=== PATIENT | male | born 1960 | race Caucasian/White ===

== ENCOUNTER 2017-02-01 20:04 | Emergency (ER) | payer MEDICARE, MEDICAID ==
[~2017-02-01] VITALS: Ht 165.1 cm; Wt 59.0 kg
[~2017-02-01 20:04] MED LIST: CALC-751 PO; CLON0.1T PO; DOXA4TAB3 PO; HYDR-3735 PO; LEVO500T15 PO; LISI-604 PO; METR250T PO; NIFE90TA2 PO; OMEP20CA10 PO; PRED5TAB48 PO; SEVE800T8 PO
[2017-02-01 22:03] LABS: HEMATOCRIT. 31.5 % (42.0-52.0); HEMOGLOBIN. 10.5 g/dL (14.0-18.0); MEAN CORPUSCULAR HEMOGLOBIN 30.2 pg (28.0-32.0); MEAN CORPUSCULAR VOLUME 90.4 fL (80.0-94.0); PLATELET 116 x1000/uL (130-400); RED BLOOD CELL COUNT 3.49 mill/uL (4.7-6.1); RED CELL DISTRIBUTION WIDTH 15.7 % (11.6-14.6)
[2017-02-01] MEDS ORDERED: HYDROCODONE/ACETAMINOPHEN 5/325MG TABLET PO ONE (22:30)
[2017-02-01 23:00] LABS: PLATELET ESTIMATE DECREASED
[2017-02-02 00:13] VITALS: BP 189/98
== END 2017-02-02 00:38 | disposition home or self-care (01) ==
LOC: ER 21:47
DX: Z48.00 Encounter for change or removal of nonsurgical wound dressing (principal); M79.89 Other specified soft tissue disorders; M79.605 Pain in left leg; I12.0 Hypertensive chronic kidney disease with stage 5 chronic kidney disease or end stage renal disease; N18.6 End stage renal disease; Z99.2 Dependence on renal dialysis
CPT/HCPCS: 36415; 73590; 80048; 85007; 85027; 87040; 93971; 99285

== ENCOUNTER 2017-02-16 18:01 | Emergency (ER) | payer MEDICARE, MEDICAID ==
[~2017-02-16] VITALS: Ht 167.6 cm; Wt 65.0 kg
[2017-02-16 20:49] LABS: BASOPHILS % 1.3 % (0.0-2.0); EOSINOPHILS % 8.1 % (0.0-5.0); HEMATOCRIT. 31.8 % (42.0-52.0); HEMOGLOBIN. 10.7 g/dL (14.0-18.0); LYMPHOCYTES % 23.3 % (20.0-50.0); MEAN CORPUSCULAR HEMOGLOBIN 29.3 pg (28.0-32.0); MEAN CORPUSCULAR VOLUME 86.9 fL (80.0-94.0); MEAN PLATELET VOLUME 7.5 fl (7.4-10.4); MONOCYTES % 11.9 % (2.0-8.0); NEUTROPHILS % 55.4 % (40.0-76.0); PLATELET 198 x1000/uL (130-400); RED BLOOD CELL COUNT 3.66 mill/uL (4.7-6.1); RED CELL DISTRIBUTION WIDTH 15.1 % (11.6-14.6)
[2017-02-16 20:53] LABS: INR 1.1; PROTHROMBIN TIME 11.2 sec
[2017-02-16 21:03] LABS: CARBON DIOXIDE 34 mEq/L (21-32); CHLORIDE 91 mEq/L (98-107); TROPONIN I < 0.02 ng/mL (0.00-0.04)
[2017-02-16 21:59] VITALS: BP 157/72
== END 2017-02-16 22:06 | disposition home or self-care (01) ==
LOC: ER 18:07
DX: R06.00 Dyspnea, unspecified (principal); I12.0 Hypertensive chronic kidney disease with stage 5 chronic kidney disease or end stage renal disease; N18.6 End stage renal disease; Z99.2 Dependence on renal dialysis; E03.9 Hypothyroidism, unspecified; D64.9 Anemia, unspecified; I51.7 Cardiomegaly
CPT/HCPCS: 36415; 71010; 80053; 83880; 84484; 85025; 85610; 93005; 99285

== ENCOUNTER 2018-11-05 21:01 | Inpatient (IN) | payer MEDICARE, MEDICAID ==
[~2018-11-05] VITALS: Ht 165.1 cm; Wt 57.6 kg
[~2018-11-05 21:01] MED LIST changes: -CALC-751 PO; +CALC-816 PO; -LEVO500T15 PO; +LEVO500T2 PO
[2018-11-05] MEDS ORDERED: DICYCLOMINE 10 MG/5 ML ORAL SYR PO STA (23:48)
[2018-11-05] MEDS ORDERED: ONDANSETRON HCL 4MG/2ML INJ IV STA (23:48)
[2018-11-06] VITALS (7 sets, daily range): BP systolic 136–180; BP diastolic 72–98
[2018-11-06 01:10] LABS: BASOPHILS % 1.2 % (0.0-2.0); EOSINOPHILS % 11.8 % (0.0-5.0); HEMATOCRIT. 36.5 % (42.0-52.0); HEMOGLOBIN. 11.9 g/dL (14.0-18.0); LYMPHOCYTES % 31.4 % (20.0-50.0); MEAN CORPUSCULAR HEMOGLOBIN 28.8 pg (28.0-32.0); MEAN CORPUSCULAR VOLUME 88.5 fL (80.0-94.0); MEAN PLATELET VOLUME 8.8 fl (7.4-10.4); MONOCYTES % 10.6 % (2.0-8.0); PLATELET 92 x1000/uL (130-400); RED BLOOD CELL COUNT 4.12 mill/uL (4.7-6.1); RED CELL DISTRIBUTION WIDTH 16.5 % (11.6-14.6)
[2018-11-06 01:17] LABS: CHLORIDE 96 mEq/L (98-107)
[2018-11-06] MEDS ORDERED: MORPHINE SULFATE 4 MG/ML CPJ (NOT FOR IM USE) IV SCH (01:30)
[2018-11-06] MEDS ORDERED: ALBUTEROL (0.083%) 2.5MG/3ML NEB HHN SCH (01:30)
[2018-11-06] MEDS ORDERED: CALCIUM CHLORIDE 1GM/10ML SYR IV SCH (01:30)
[2018-11-06] MEDS ORDERED: DEXTROSE 50% WATER 50ML SYRINGE IV SCH (01:30)
[2018-11-06] MEDS ORDERED: INSULIN REGULAR (HUMULIN R) 300UNITS/3ML IV SCH (01:30)
[2018-11-06] MEDS ORDERED: SODIUM BICARBONATE 8.4% 1 MEQ/ML 50ML SYR IV SCH (01:30)
[2018-11-06] MEDS ORDERED: HYDRALAZINE HCL 25MG TABLET PO SCH (04:00)
[2018-11-06] MEDS ORDERED: CLONIDINE 0.1MG TABLET PO PRN (07:00)
[2018-11-06] MEDS ORDERED: HYDROCODONE/ACETAMINOPHEN 5/325MG TABLET PO PRN (07:00)
[2018-11-06] MEDS ORDERED: ONDANSETRON HCL 4MG/2ML INJ IV PRN (07:00)
[2018-11-06] MEDS ORDERED: DOCUSATE SODIUM 100MG CAPSULE PO PRN (07:00)
[2018-11-06] MEDS ORDERED: DIPHENHYDRAMINE 50MG/ML VIAL IV PRN (07:00)
[2018-11-06] MEDS ORDERED: GUAIFENESIN 200MG/10ML SUGAR FREE UDC PO PRN (07:00)
[2018-11-06] MEDS ORDERED: CLONIDINE HCL 0.2MG/24HR PATCH TD NR (07:22)
[2018-11-06] MEDS ORDERED: LISINOPRIL 20MG TABLET PO SCH (07:23)
[2018-11-06] MEDS ORDERED: AMLODIPINE 10MG TABLET PO SCH (07:23)
[2018-11-06] MEDS ORDERED: SODIUM POLYSTYRENE SULFONATE 15 G/60 ML BOT PO NR (10:30)
[2018-11-06] MEDS: CLONIDINE 0.1MG TABLET PO SCH (17:15)
[2018-11-06 17:25] LABS: BG BASE EXCESS 4.3 mmol/L (-2.0-2.0); BG CARBOXYHEMOGLOBIN 0.9 % (0.5-1.5); BG DEOXYHEMOGLOBIN 3.5 % (0.0-5.0); BG FRACTION INSPIRED OXYGEN 32; BG HCO3 ACT 28.4 mmol/L (22.0-26.0); BG METHEMOGLOBIN 0.3 % (0.0-1.5); BG OXYGEN SATURATION 96.5 % (92.0-98.5); BG OXYHEMOGLOBIN 95.3 % (94.0-97.0); BG PCO2 40.6 mmHg (35.0-45.0); BG PH 7.463 (7.350-7.450); BG PO2 86.1 mmHg (75.0-100.0); BG SAMPLE SITE RIGHT BRACHIAL; BG TOTAL HEMOGLOBIN 12.2 g/dL (12.0-18.0); BG VENT MODE NASAL CANNULA
[2018-11-06] MEDS ORDERED: NIFEDIPINE XL 30MG TAB PO SCH (18:30)
[2018-11-06] MEDS ORDERED: NIFEDIPINE XL 60MG TAB PO NR (20:15)
[2018-11-07] VITALS: BP 156/71
[2018-11-07 04:00] VITALS: BP 122/62
[2018-11-07 06:42] LABS: CHLORIDE 90 mEq/L (98-107); HEMATOCRIT. 31.9 % (42.0-52.0); HEMOGLOBIN. 10.7 g/dL (14.0-18.0); MEAN CORPUSCULAR HEMOGLOBIN 29.5 pg (28.0-32.0); MEAN CORPUSCULAR VOLUME 87.5 fL (80.0-94.0); MEAN PLATELET VOLUME 8.9 fl (7.4-10.4); PLATELET 83 x1000/uL (130-400); RED BLOOD CELL COUNT 3.64 mill/uL (4.7-6.1); RED CELL DISTRIBUTION WIDTH 17.2 % (11.6-14.6)
[2018-11-07 06:59] LABS: PHOSPHORUS 5.4 mg/dL (2.5-4.9)
[2018-11-07 08:00] VITALS: BP 137/62
[2018-11-07] MEDS: CLONIDINE 0.1MG TABLET PO SCH (08:36)
[2018-11-07] MEDS ORDERED: NIFEDIPINE XL 90MG TAB PO SCH (09:00)
[2018-11-07 09:53] VITALS: BP 137/62
[2018-11-07 12:00] VITALS: BP 106/54
[2018-11-08 08:13] LABS: PLATELET ESTIMATE DECREASED
== END 2018-11-07 13:20 | disposition home or self-care (01) | DRG 640 ==
LOC: ER 21:01 → ENRESERV 11-06 08:10 → 8WST 11-06 09:14
PROVIDERS: ADMIT Hospitalist; ATTEND Hospitalist
PROC: 5A1D70Z Performance of Urinary Filtration, Intermittent, Less than 6 Hours Per Day (ICD-10-PCS; principal; 2018-11-06)
DX: E87.5 Hyperkalemia (principal); N18.6 End stage renal disease; I50.32 Chronic diastolic (congestive) heart failure; I13.2 Hypertensive heart and chronic kidney disease with heart failure and with stage 5 chronic kidney disease, or end stage renal disease; N25.81 Secondary hyperparathyroidism of renal origin; Z98.85 Transplanted organ removal status; D63.1 Anemia in chronic kidney disease; E16.2 Hypoglycemia, unspecified; D69.6 Thrombocytopenia, unspecified; E87.1 Hypo-osmolality and hyponatremia; Z82.49 Family history of ischemic heart disease and other diseases of the circulatory system; Z99.2 Dependence on renal dialysis; Z79.899 Other long term (current) drug therapy
CPT/HCPCS: 36415; 36600; 71045; 74018; 82375; 82805; 82962; 83605; 83735; 84100; 93005; 93970; 96374; 96375; 99285; J1815; J2270; J2405; J3490; J7611

== ENCOUNTER 2019-02-23 15:25 | Inpatient (IN) | payer MEDICARE, MEDICAID ==
[~2019-02-23] VITALS: Ht 165.1 cm; Wt 55.3 kg
[~2019-02-23 15:25] MED LIST changes: +CALC-38 PO; -CALC-816 PO; -DOXA4TAB3 PO; -LEVO500T2 PO; -LISI-604 PO; -METR250T PO; -NIFE90TA2 PO; -OMEP20CA10 PO; +OMEP20CA5 PO; -PRED5TAB48 PO
[2019-02-23 16:50] LABS: CHLORIDE 94 mEq/L (98-107)
[2019-02-23 16:51] LABS: BASOPHILS % 1.4 % (0.0-2.0); EOSINOPHILS % 10.6 % (0.0-5.0); HEMATOCRIT. 33.8 % (42.0-52.0); HEMOGLOBIN. 11.2 g/dL (14.0-18.0); LYMPHOCYTES % 39.6 % (20.0-50.0); MEAN CORPUSCULAR HEMOGLOBIN 29.1 pg (28.0-32.0); MEAN CORPUSCULAR VOLUME 87.7 fL (80.0-94.0); MEAN PLATELET VOLUME 8.6 fl (7.4-10.4); MONOCYTES % 12.4 % (2.0-8.0); PLATELET 85 x1000/uL (130-400); RED BLOOD CELL COUNT 3.85 mill/uL (4.7-6.1); RED CELL DISTRIBUTION WIDTH 17.1 % (11.6-14.6)
[2019-02-23 16:54] LABS: ETHANOL BLOOD < 10 mg/dL
[2019-02-23] MEDS ORDERED: ASPIRIN 325MG EC TABLET PO ONE (18:15)
[2019-02-23 23:15] VITALS: BP 131/82
[2019-02-24] VITALS: BP 131/82
[2019-02-24] MEDS ORDERED: GUAIFENESIN 200MG/10ML SUGAR FREE UDC PO PRN
[2019-02-24] MEDS ORDERED: LORAZEPAM 2MG/ML CPJ IV PRN
[2019-02-24] MEDS ORDERED: NA PHOS,M-B/NA PHOS,DI-BA ENEMA 118ML PR PRN
[2019-02-24] MEDS ORDERED: ACETAMINOPHEN 325MG TABLET PO PRN
[2019-02-24] MEDS ORDERED: ONDANSETRON HCL 4MG/2ML INJ IV PRN
[2019-02-24] MEDS ORDERED: MAGNESIUM/ALUMINUM HYDROXIDE/SIMETHICONE 30ML UDC PO PRN
[2019-02-24] MEDS ORDERED: ENOXAPARIN 40MG/0.4ML SYR SUBCUT SCH
[2019-02-24] MEDS ORDERED: HYDROCODONE/ACETAMINOPHEN 5/325MG TABLET PO PRN
[2019-02-24] MEDS ORDERED: IPRATROPIUM/ALBUTEROL 0.5-3(2.5)MG/3ML NEB INH PRN
[2019-02-24] MEDS ORDERED: DOCUSATE SODIUM 100MG CAPSULE PO PRN
[2019-02-24] MEDS ORDERED: HYDROMORPHONE HCL/PF 2MG/ML CPJ IV PRN
[2019-02-24] MEDS ORDERED: DIPHENHYDRAMINE 50MG/ML VIAL IV PRN
[2019-02-24] MEDS ORDERED: TERA5CAP4 PO (03:43)
[2019-02-24] MEDS ORDERED: LEVO25TA7 PO (03:51)
[2019-02-24] MEDS ORDERED: CALC667C PO (03:55)
[2019-02-24 04:00] VITALS: BP 136/87
[2019-02-24 06:29] LABS: BASOPHILS % 0.9 % (0.0-2.0); CHLORIDE 93 mEq/L (98-107); EOSINOPHILS % 12.4 % (0.0-5.0); HEMATOCRIT. 31.9 % (42.0-52.0); HEMOGLOBIN. 10.6 g/dL (14.0-18.0); LYMPHOCYTES % 41.6 % (20.0-50.0); MEAN CORPUSCULAR VOLUME 87.4 fL (80.0-94.0); MEAN PLATELET VOLUME 8.7 fl (7.4-10.4); MONOCYTES % 9.7 % (2.0-8.0); NEUTROPHILS % 35.4 % (40.0-76.0); PLATELET 80 x1000/uL (130-400); RED BLOOD CELL COUNT 3.65 mill/uL (4.7-6.1); RED CELL DISTRIBUTION WIDTH 16.8 % (11.6-14.6)
[2019-02-24 06:39] LABS: LDL CHOLESTEROL 76 mg/dL (5-100)
[2019-02-24 06:40] LABS: HDL CHOLESTEROL 21 mg/dL (40-59)
[2019-02-24 08:00] VITALS: BP 134/87
[2019-02-24] MEDS: ASPIRIN 81MG EC TABLET PO SCH ×2 (09:00→09:41)
[2019-02-24 10:36] LABS: PHOSPHORUS 4.3 mg/dL (2.5-4.9)
[2019-02-24 12:00] VITALS: BP 155/94
[2019-02-24] MEDS ORDERED: IOHEXOL-350 100 ML BOTTLE ONE (12:39)
[2019-02-24] MEDS: PREDNISONE 5MG TABLET PO SCH (13:45)
[2019-02-24] MEDS: SEVELAMER CARBONATE 800 MG TABLET PO SCH ×2 (13:46→18:10)
[2019-02-24] MEDS: LEVOTHYROXINE SODIUM 50MCG TABLET PO SCH (13:46)
[2019-02-24 16:00] VITALS: BP 160/93
[2019-02-24 17:20] LABS: CREATINE KINASE 54 IU/L (39-308)
[2019-02-24 17:21] LABS: CREATINE KINASE MB FRACTION < 1.0 ng/mL (0.5-3.6)
[2019-02-24] MEDS: CLONIDINE 0.1MG TABLET PO PRN ×2 (18:35→23:36)
[2019-02-24 20:00] VITALS: BP 165/80
[2019-02-24] MEDS ORDERED: FAMOTIDINE 20MG TABLET PO SCH (21:00)
[2019-02-24] MEDS ORDERED: MIRTAZAPINE 15MG TABLET PO SCH (21:00)
[2019-02-24] MEDS: CARVEDILOL 3.125 MG TABLET PO SCH (21:42)
[2019-02-25] VITALS: BP 174/99
[2019-02-25 01:09] LABS: CREATINE KINASE MB FRACTION < 1.0 ng/mL (0.5-3.6)
[2019-02-25 01:11] LABS: CREATINE KINASE 57 IU/L (39-308)
[2019-02-25] MEDS ORDERED: APIXABAN 2.5 MG TABLET PO SCH (02:15)
[2019-02-25 04:00] VITALS: BP 166/94
[2019-02-25] MEDS: CLONIDINE 0.1MG TABLET PO PRN ×2 (04:57→12:54)
[2019-02-25 06:00] LABS: CHLORIDE 97 mEq/L (98-107)
[2019-02-25 06:07] LABS: PHOSPHORUS 3.6 mg/dL (2.5-4.9)
[2019-02-25 06:10] LABS: CREATINE KINASE 55 IU/L (39-308)
[2019-02-25 06:12] LABS: CREATINE KINASE MB FRACTION < 1.0 ng/mL (0.5-3.6)
[2019-02-25 06:35] LABS: BASOPHILS % 1.3 % (0.0-2.0); EOSINOPHILS % 3.7 % (0.0-5.0); HEMATOCRIT. 33.4 % (42.0-52.0); LYMPHOCYTES % 38.5 % (20.0-50.0); MEAN CORPUSCULAR HEMOGLOBIN 29.2 pg (28.0-32.0); MEAN CORPUSCULAR VOLUME 88.4 fL (80.0-94.0); MEAN PLATELET VOLUME 9.2 fl (7.4-10.4); MONOCYTES % 10.9 % (2.0-8.0); NEUTROPHILS % 45.6 % (40.0-76.0); PLATELET 78 x1000/uL (130-400); RED BLOOD CELL COUNT 3.78 mill/uL (4.7-6.1); RED CELL DISTRIBUTION WIDTH 17.1 % (11.6-14.6)
[2019-02-25 08:00] VITALS: BP 157/94
[2019-02-25] MEDS: CARVEDILOL 3.125 MG TABLET PO SCH (08:52)
[2019-02-25] MEDS: ASPIRIN 81MG EC TABLET PO SCH (08:52)
[2019-02-25] MEDS: SEVELAMER CARBONATE 800 MG TABLET PO SCH ×2 (08:52→12:38)
[2019-02-25] MEDS ORDERED: FOLIC ACID/VITAMIN B COMP W-C TABLET PO SCH (09:00)
[2019-02-25] MEDS: LEVOTHYROXINE SODIUM 50MCG TABLET PO SCH (09:04)
[2019-02-25] MEDS: PREDNISONE 5MG TABLET PO SCH (09:04)
[2019-02-25 12:00] VITALS: BP 169/96
[2019-02-25] MEDS ORDERED: SODIUM POLYSTYRENE SULFONATE 15 G/60 ML BOT PO NR (12:00)
[2019-02-25 14:20] VITALS: BP 150/90
[2019-02-25] MEDS ORDERED: HYDRALAZINE HCL 50MG TABLET PO SCH (21:00)
[2019-02-25] MEDS ORDERED: CARVEDILOL 6.25 MG TABLET PO SCH (21:00)
[2019-02-25] MEDS ORDERED: TERAZOSIN HCL 5MG CAPSULE PO SCH (21:00)
== END 2019-02-25 15:36 | disposition home or self-care (01) | DRG 682 ==
LOC: ER 15:25 → 7WST 18:48 → ENRESERV 21:34
PROVIDERS: ADMIT Internal Medicine; ATTEND Internal Medicine
PROC: 5A1D70Z Performance of Urinary Filtration, Intermittent, Less than 6 Hours Per Day (ICD-10-PCS; principal; 2019-02-24)
DX: I12.0 Hypertensive chronic kidney disease with stage 5 chronic kidney disease or end stage renal disease (principal); G93.41 Metabolic encephalopathy; N18.6 End stage renal disease; G45.9 Transient cerebral ischemic attack, unspecified; N25.81 Secondary hyperparathyroidism of renal origin; E46 Unspecified protein-calorie malnutrition; D64.9 Anemia, unspecified; E03.9 Hypothyroidism, unspecified; F32.9 Major depressive disorder, single episode, unspecified; I48.91 Unspecified atrial fibrillation; I71.9 Aortic aneurysm of unspecified site, without rupture; K21.9 Gastro-esophageal reflux disease without esophagitis; G47.00 Insomnia, unspecified; R31.0 Gross hematuria; D72.1 Eosinophilia; M19.90 Unspecified osteoarthritis, unspecified site; E21.3 Hyperparathyroidism, unspecified; E83.39 Other disorders of phosphorus metabolism; Z76.82 Awaiting organ transplant status; Z99.2 Dependence on renal dialysis; Z79.52 Long term (current) use of systemic steroids; Z82.49 Family history of ischemic heart disease and other diseases of the circulatory system; Z79.899 Other long term (current) drug therapy; Z68.20 Body mass index [BMI] 20.0-20.9, adult
CPT/HCPCS: 36415; 70551; 71045; 71275; 80048; 80061; 80320; 82550; 82553; 82962; 83036; 83880; 84100; 84132; 84439; 84443; 84484; 85379; 93005; 93306; 93970; 99285; J7050; J7512; Q9967; G0480

== ENCOUNTER 2021-05-20 17:26 | Inpatient (IN) | payer MEDICARE, MEDICAID ==
[~2021-05-20] VITALS: Ht 165.1 cm; Wt 59.6 kg
[~2021-05-20 17:26] MED LIST changes: +AMLO10TA80 PO; -CALC-38 PO; +CALC667C PO; +CARV3.1242 PO; -CLON0.1T PO; +FAMO20TA8 PO; -HYDR-3735 PO; +HYDR-459 PO; +LEVO25TA7 PO; +OMEP20CA14 PO; -OMEP20CA5 PO; +TERA5CAP4 PO
[2021-05-20] MEDS ORDERED: ALBUTEROL (0.083%) 2.5MG/3ML NEB HHN STA (18:23)
[2021-05-20] MEDS ORDERED: IPRATROPIUM BROMIDE (0.02%) 0.5MG/2.5ML NEB HHN STA (18:23)
[2021-05-20 18:56] LABS: MEAN CORPUSCULAR HEMOGLOBIN 29.6 pg (28.0-32.0); MEAN CORPUSCULAR VOLUME 88.4 fL (80.0-94.0); MEAN PLATELET VOLUME 8.7 fl (7.4-10.4); PLATELET 132 x1000/uL (130-400); RED BLOOD CELL COUNT 4.07 mill/uL (4.7-6.1); RED CELL DISTRIBUTION WIDTH 17.1 % (11.6-14.6)
[2021-05-20 19:05] LABS: CHLORIDE 100 mEq/L (98-107)
[2021-05-20 19:53] LABS: PLATELET ESTIMATE NORMAL
[2021-05-20] MEDS ORDERED: METHYLPREDNISOLONE SOD SUCC 125 MG/2 ML VIAL IV NR (20:45)
[2021-05-20] MEDS ORDERED: ACETAMINOPHEN 325MG TABLET PO PRN (21:00)
[2021-05-20] MEDS ORDERED: CEFTRIAXONE 1 G PREMIX 50 ML IV SCH (23:00)
[2021-05-20] MEDS ORDERED: AZITHROMYCIN 500MG/250ML 250 ML IV SCH (23:00)
[2021-05-21] VITALS (7 sets, daily range): BP systolic 111–136; BP diastolic 59–76
[2021-05-21] MEDS: ALBUTEROL (0.083%) 2.5MG/3ML NEB HHN SCH ×4 (01:10→21:37)
[2021-05-21 04:46] LABS: HEMATOCRIT. 33.9 % (42.0-52.0); HEMOGLOBIN. 11.4 g/dL (14.0-18.0); MEAN CORPUSCULAR HEMOGLOBIN 29.9 pg (28.0-32.0); MEAN CORPUSCULAR VOLUME 88.6 fL (80.0-94.0); MEAN PLATELET VOLUME 8.7 fl (7.4-10.4); PLATELET 123 x1000/uL (130-400); RED BLOOD CELL COUNT 3.83 mill/uL (4.7-6.1); RED CELL DISTRIBUTION WIDTH 16.8 % (11.6-14.6)
[2021-05-21 04:54] LABS: CHLORIDE 97 mEq/L (98-107)
[2021-05-21 05:00] LABS: PHOSPHORUS 5.3 mg/dL (2.5-4.9)
[2021-05-21] MEDS ORDERED: CLONIDINE 0.1MG TABLET PO PRN (06:30)
[2021-05-21] MEDS: OMEPRAZOLE 20MG CAPSULE EXTENDED RELEASE PO SCH (06:55)
[2021-05-21] MEDS: CALCIUM ACETATE 667MG CAPSULE PO SCH ×3 (06:55→16:58)
[2021-05-21] MEDS: METHYLPREDNISOLONE SOD SUCC 40 MG/ML VIAL IV SCH ×3 (06:55→21:17)
[2021-05-21] MEDS: LEVOTHYROXINE SODIUM 75MCG TABLET PO SCH (06:55)
[2021-05-21 07:13] LABS: PLATELET ESTIMATE SLIGHTLY DECREASED
[2021-05-21] MEDS ORDERED: PREDNISONE 5MG TABLET PO SCH (09:00)
[2021-05-21] MEDS: AMIODARONE HCL 200 MG TABLET PO SCH (09:27)
[2021-05-21] MEDS: HEPARIN 5000 UNITS/ML VIAL SUBCUT SCH ×2 (09:27→21:17)
[2021-05-21] MEDS: AMLODIPINE 10MG TABLET PO SCH (09:28)
[2021-05-21] MEDS: HYDRALAZINE HCL 25MG TABLET PO SCH ×2 (09:28→21:13)
[2021-05-21] MEDS: ASPIRIN 81MG TABLET PO SCH (09:28)
[2021-05-21] MEDS ORDERED: TERAZOSIN HCL 5MG CAPSULE PO SCH (21:00)
[2021-05-21] MEDS: CEFTRIAXONE 1,000 MG in DEXTROSE 5% WATER 50 ML IV SCH (21:13)
[2021-05-21] MEDS: TERAZOSIN HCL 5MG CAPSULE PO SCH (21:14)
[2021-05-22] VITALS (12 sets, daily range): BP systolic 116–143; BP diastolic 58–68
[2021-05-22] MEDS: ALBUTEROL (0.083%) 2.5MG/3ML NEB HHN SCH ×3 (01:23→14:06)
[2021-05-22] MEDS: OMEPRAZOLE 20MG CAPSULE EXTENDED RELEASE PO SCH (06:16)
[2021-05-22] MEDS: LEVOTHYROXINE SODIUM 75MCG TABLET PO SCH (06:16)
[2021-05-22] MEDS: METHYLPREDNISOLONE SOD SUCC 40 MG/ML VIAL IV SCH ×2 (06:16→21:47)
[2021-05-22 06:45] LABS: CHLORIDE 94 mEq/L (98-107); HEMATOCRIT. 32.5 % (42.0-52.0); HEMOGLOBIN. 10.7 g/dL (14.0-18.0); MEAN CORPUSCULAR HEMOGLOBIN 29.5 pg (28.0-32.0); MEAN CORPUSCULAR VOLUME 89.1 fL (80.0-94.0); MEAN PLATELET VOLUME 9.1 fl (7.4-10.4); PLATELET 124 x1000/uL (130-400); RED BLOOD CELL COUNT 3.65 mill/uL (4.7-6.1)
[2021-05-22 07:02] LABS: PHOSPHORUS 5.4 mg/dL (2.5-4.9)
[2021-05-22] MEDS: CALCIUM ACETATE 667MG CAPSULE PO SCH ×3 (08:35→17:31)
[2021-05-22] MEDS: ASPIRIN 81MG TABLET PO SCH (08:36)
[2021-05-22] MEDS: HEPARIN 5000 UNITS/ML VIAL SUBCUT SCH ×2 (08:36→21:48)
[2021-05-22] MEDS: AMLODIPINE 10MG TABLET PO SCH (08:36)
[2021-05-22] MEDS: AMIODARONE HCL 200 MG TABLET PO SCH (08:36)
[2021-05-22 13:56] LABS: PLATELET ESTIMATE NORMAL
[2021-05-22] MEDS ORDERED: AMI2 PO (15:33)
[2021-05-22] MEDS ORDERED: PRED5TAB48 PO (15:34)
[2021-05-22] MEDS ORDERED: ASPI-1497 PO (15:34)
[2021-05-22 16:03] LABS: HEPATITIS B SURFACE ANTIGEN NEGATIVE
[2021-05-22] MEDS: TERAZOSIN HCL 5MG CAPSULE PO SCH (21:47)
[2021-05-22] MEDS: CEFTRIAXONE 1,000 MG in DEXTROSE 5% WATER 50 ML IV SCH (21:54)
[2021-05-23] VITALS (7 sets, daily range): BP systolic 119–136; BP diastolic 62–77
[2021-05-23] MEDS: OMEPRAZOLE 20MG CAPSULE EXTENDED RELEASE PO SCH (06:32)
[2021-05-23] MEDS: CALCIUM ACETATE 667MG CAPSULE PO SCH ×2 (06:32→12:14)
[2021-05-23] MEDS: LEVOTHYROXINE SODIUM 75MCG TABLET PO SCH (06:32)
[2021-05-23 07:22] LABS: HEMATOCRIT. 36.4 % (42.0-52.0); HEMOGLOBIN. 11.8 g/dL (14.0-18.0); MEAN CORPUSCULAR HEMOGLOBIN 29.3 pg (28.0-32.0); MEAN CORPUSCULAR VOLUME 90.3 fL (80.0-94.0); MEAN PLATELET VOLUME 9.9 fl (7.4-10.4); PLATELET 126 x1000/uL (130-400); RED BLOOD CELL COUNT 4.03 mill/uL (4.7-6.1)
[2021-05-23] MEDS: HEPARIN 5000 UNITS/ML VIAL SUBCUT SCH (08:23)
[2021-05-23] MEDS: ASPIRIN 81MG TABLET PO SCH (08:23)
[2021-05-23] MEDS: AMIODARONE HCL 200 MG TABLET PO SCH (08:23)
[2021-05-23] MEDS: METHYLPREDNISOLONE SOD SUCC 40 MG/ML VIAL IV SCH (08:23)
[2021-05-23] MEDS: AMLODIPINE 10MG TABLET PO SCH (08:24)
[2021-05-23] MEDS: ALBUTEROL (0.083%) 2.5MG/3ML NEB HHN SCH (08:55)
[2021-05-23] MEDS ORDERED: P20 MT (10:18)
[2021-05-23] MEDS ORDERED: AMOX-494 MT (10:18)
[2021-05-23 10:43] LABS: PLATELET ESTIMATE SLIGHTLY DECREASED
[2021-05-24 10:07] LABS: ANTI-NUCLEAR ANTIBODIES DIRECT Negative (Negative)
[2021-05-25 17:06] LABS: ANTI-MYELOPEROXIDASE AB < 9.0 U/mL (0.0-9.0); ANTI-PROTEINASE 3 ABS < 3.5 U/mL (0.0-3.5)
[2021-05-27 13:10] LABS: ATYPICAL P-ANCA <1:20 titer (Neg:<1:20); CYTOPLASMIC C-ANCA <1:20 titer (Neg:<1:20); PERINUCLEAR P-ANCA <1:20 titer (Neg:<1:20)
== END 2021-05-23 12:20 | disposition home or self-care (01) | DRG 193 ==
LOC: ER 17:26 → EDBEDREQ 19:54 → EDBEDREQTM 19:54 → EDBEDREQSVC 21:28 → EDBEDREQTM 21:28 → MICUSO 05-21 00:05 → 3WST 05-21 11:37
PROVIDERS: ADMIT Internal Medicine; ATTEND Internal Medicine
PROC: 5A1D70Z Performance of Urinary Filtration, Intermittent, Less than 6 Hours Per Day (ICD-10-PCS; principal; 2021-05-22)
DX: J18.9 Pneumonia, unspecified organism (principal); J96.01 Acute respiratory failure with hypoxia; N18.6 End stage renal disease; J44.0 Chronic obstructive pulmonary disease with (acute) lower respiratory infection; I13.2 Hypertensive heart and chronic kidney disease with heart failure and with stage 5 chronic kidney disease, or end stage renal disease; E44.1 Mild protein-calorie malnutrition; I50.30 Unspecified diastolic (congestive) heart failure; E87.1 Hypo-osmolality and hyponatremia; T86.11 Kidney transplant rejection; D63.8 Anemia in other chronic diseases classified elsewhere; E03.9 Hypothyroidism, unspecified; E11.22 Type 2 diabetes mellitus with diabetic chronic kidney disease; E78.5 Hyperlipidemia, unspecified; I27.20 Pulmonary hypertension, unspecified; I48.0 Paroxysmal atrial fibrillation; Z20.822 Contact with and (suspected) exposure to COVID-19; E83.39 Other disorders of phosphorus metabolism; I77.6 Arteritis, unspecified; D69.6 Thrombocytopenia, unspecified; T38.0X5A Adverse effect of glucocorticoids and synthetic analogues, initial encounter; Y83.4 Other reconstructive surgery as the cause of abnormal reaction of the patient, or of later complication, without mention of misadventure at the time of the procedure; E11.42 Type 2 diabetes mellitus with diabetic polyneuropathy; K21.9 Gastro-esophageal reflux disease without esophagitis; Z86.16 Personal history of COVID-19; Z86.73 Personal history of transient ischemic attack (TIA), and cerebral infarction without residual deficits; Z87.11 Personal history of peptic ulcer disease; Z87.891 Personal history of nicotine dependence; Z99.2 Dependence on renal dialysis; Z82.49 Family history of ischemic heart disease and other diseases of the circulatory system; Z87.01 Personal history of pneumonia (recurrent); Z79.899 Other long term (current) drug therapy; Z56.0 Unemployment, unspecified; Z88.1 Allergy status to other antibiotic agents; Y92.89 Other specified places as the place of occurrence of the external cause; Z68.21 Body mass index [BMI] 21.0-21.9, adult; D72.829 Elevated white blood cell count, unspecified
CPT/HCPCS: 36415; 71045; 80048; 80053; 82785; 83520; 83605; 83880; 84100; 84145; 84484; 85025; 85651; 86038; 86140; 86256; 86431; 86705; 86709; 86803; 87340; 87426; 93005; 94640; 99285; J0456; J0696; J1644; J2920; J2930; J7060

== ENCOUNTER 2022-01-08 22:48 | Emergency (ER) | payer MEDICARE, MEDICAID ==
[~2022-01-08] VITALS: Ht 165.1 cm; Wt 62.0 kg
[~2022-01-08 22:48] MED LIST changes: +AMI2 PO; +AMOX-494 MT; +ASPI-1497 PO; -CARV3.1242 PO; -HYDR-459 PO; -OMEP20CA14 PO; +P20 MT
[2022-01-09 05:43] VITALS: BP 137/65
== END 2022-01-09 05:46 | disposition home or self-care (01) ==
LOC: ER 22:48
DX: U07.1 COVID-19 (principal); I12.0 Hypertensive chronic kidney disease with stage 5 chronic kidney disease or end stage renal disease; E11.22 Type 2 diabetes mellitus with diabetic chronic kidney disease; N18.6 End stage renal disease; Z99.2 Dependence on renal dialysis; Z79.899 Other long term (current) drug therapy
CPT/HCPCS: 99281

== ENCOUNTER → 2022-08-26 | Outpatient (CLI) | payer MEDICARE, MEDICAID | END | disposition home or self-care (01) | LOC: CT 10:44 | PROVIDERS: ATTEND Internal Medicine Critical Care Medicine | DX: N28.1 Cyst of kidney, acquired (principal); R06.02 Shortness of breath; I28.8 Other diseases of pulmonary vessels | CPT/HCPCS: 71250 ==